=== PATIENT | female | born 1960 | race Caucasian/White ===

== ENCOUNTER 2016-12-12 12:01 | Inpatient (IN) | payer BC, OTHER ==
[~2016-12-12] VITALS: Ht 160 cm; Wt 67.1 kg
[~2016-12-12 12:01] MED LIST: BUPIVACAINE/PF 0.25% ONE; CEFAZOLIN 1,000 MG ONE; DEXAMETHASONE 4 MG/ML, 1ML ONE; EPINEPHRINE 1 MG/ML, 1ML ONE; HEPARIN 1,000 UNITS/ML, 10ML ONE; KETOROLAC 30 MG/1 ML ONE; LEVO125T63 PO; ONDANSETRON 2MG/ML, 2ML ONE; PROPOFOL 10 MG/ML, 20ML ONE; ROCURONIUM 10MG/ML,5ML ONE; SUCCINYLCHOLINE 20 MG/ML, 10ML ONE; VITAMIN B 12 PO
[2016-12-12] MEDS ORDERED: LACTATED RINGERS 1,000 ML IV SCH (12:32)
[2016-12-12 12:35] VITALS: BP 145/96
[2016-12-12] MEDS ORDERED: INDOCYANINE GREEN 25 MG VIAL ONE (13:20)
[2016-12-12] MEDS ORDERED: FENTANYL PF 100 MCG/2ML ONE ×3 (13:54→15:52)
[2016-12-12] MEDS ORDERED: MIDAZOLAM 1 MG/ML, 2ML ONE (13:54)
[2016-12-12] MEDS ORDERED: FENTANYL PF 100 MCG/2ML IV PRN (14:30)
[2016-12-12] MEDS ORDERED: ONDANSETRON 2MG/ML, 2ML IVPush PRN ×2 (14:30→20:00)
[2016-12-12] MEDS ORDERED: ACETAMINOPHEN 325 MG TABLET PO PRN (14:30)
[2016-12-12] MEDS ORDERED: hydrALAzine 20 MG/ML, 1ML IV PRN (14:30)
[2016-12-12] MEDS ORDERED: OXYcodone 5 MG/5 ML ORAL.SOL UDC PO PRN (14:30)
[2016-12-12] MEDS ORDERED: LABETALOL 5MG/ML, 20ML IV PRN (14:30)
[2016-12-12] MEDS ORDERED: HYDROmorphone 1 MG/ML, 1ML IV PRN (14:30)
[2016-12-12] MEDS ORDERED: PLEASE ENTER ALLERGIES MC SCH ×2 (14:30)
[2016-12-12] MEDS ORDERED: METOCLOPRAMIDE 5 MG/ML, 2ML IV PRN (14:30)
[2016-12-12] MEDS ORDERED: OXYcodone 5 MG/5 ML ORAL.SOL UDC ONE (15:52)
[2016-12-12] MEDS ORDERED: METOCLOPRAMIDE 5 MG/ML, 2ML IVPush PRN (20:00)
[2016-12-12] MEDS ORDERED: KETOROLAC 30 MG/1 ML IVPush PRN (20:00)
[2016-12-12] MEDS ORDERED: OXYcodone/APAP 7.5/325MG TABLET PO PRN (20:00)
[2016-12-12] MEDS ORDERED: VITAMIN B12 MC SCH (20:00)
[2016-12-12] MEDS ORDERED: MORPHINE SULFATE 4 MG/ML, 1ML IV PRN (20:00)
[2016-12-13] MEDS ORDERED: LEVOTHYROXINE 125 MCG TABLET PO SCH (06:00)
== END 2016-12-12 20:45 | disposition home or self-care (01) | DRG 741 ==
LOC: OUT 12:01 → 4NOR 19:23
PROVIDERS: ADMIT Specialist; ATTEND Specialist
PROC: 0UT94ZZ Resection of Uterus, Percutaneous Endoscopic Approach (ICD-10-PCS; 2016-12-12)
PROC: 0UT24ZZ Resection of Bilateral Ovaries, Percutaneous Endoscopic Approach (ICD-10-PCS; 2016-12-12)
PROC: 07BC4ZX Excision of Pelvis Lymphatic, Percutaneous Endoscopic Approach, Diagnostic (ICD-10-PCS; 2016-12-12)
PROC: 8E0W4CZ Robotic Assisted Procedure of Trunk Region, Percutaneous Endoscopic Approach (ICD-10-PCS; principal; 2016-12-12 15:00)
DX: C54.1 Malignant neoplasm of endometrium (principal)
CPT/HCPCS: 36415; 86850; 86900; 86923; 88112; 88305; 88307; 88312; 88331; 88333; J0171; J0690; J1100; J1644; J1885; J2250; J2405; J2704; J3010; J3490; J0330; J7120